=== PATIENT | male | born 1975 | race Caucasian/White ===

== ENCOUNTER → 2019-01-03 13:36 | Outpatient (CLI) | payer OTHER ==
[~2019-01-03 13:36] MED LIST: IBUPROFEN800 MG PO; PERCOCET 10-321 EAC1 PO; ZOFRAN ODT4 MG/UDTAB PO
--- NOTE | 2019-01-03 14:32 | NUR ---
TIME OUT WAS PERFORMED ON LT SHLD ARTHROGRAM W MATTEO SANDOVAL RT AND DR TAN
[2019-01-28 08:43] VITALS: BMI 34.3
== END | disposition home or self-care (01) ==
LOC: D.RAD 10:00 → D.MRI 11:00 → D.RAD 13:36
PROVIDERS: ATTEND Orthopaedic Surgery
DX: S49.92XA Unspecified injury of left shoulder and upper arm, initial encounter (principal)

== ENCOUNTER 2019-01-28 08:10 | Day surgery (SDC) | payer OTHER ==
[~2019-01-28] VITALS: Ht 185.4 cm; Wt 117.9 kg
[2019-01-28] MEDS ORDERED: IBUPROFEN800 MG PO (08:36)
[2019-01-28 08:43] VITALS: BP 128/73; Ht 185.4 cm; Wt 117.9 kg
[2019-01-28] MEDS ORDERED: PERCOCET 10-321 EAC1 PO (14:19)
[2019-01-28] MEDS ORDERED: ZOFRAN ODT4 MG/UDTAB PO (14:20)
--- NOTE | 2019-01-28 15:55 | NUR ---
1545 FL DIET SERVED. UP TO BR VOIDS QS.
--- NOTE | 2019-01-30 09:08 | OP ---
PATIENT NAME: NOEL HERNANDEZ MEDICAL RECORD: [id number] :77 LOCATION:[facility] ADMISSION DATE: SURGEON: HOANG PEREZ MD DATE OF OPERATION: 01/28/2019 PREOPERATIVE DIAGNOSES: SLAP lesion of the left shoulder with impingement syndrome and acromioclavicular arthritis. POSTOPERATIVE DIAGNOSES: SLAP lesion of the left shoulder with impingement syndrome and acromioclavicular arthritis. PROCEDURES: 1. Arthroscopic SLAP repair of the left shoulder. 2. Arthroscopic distal clavicle excision done through separate incision -- 1 cm. 3. Arthroscopic subacromial decompression, acromioplasty, and bursectomy. SURGEON: Hoang Perez MD APPLICATION CONSULTANT: Lane Hay APN INTRAOPERATIVE COMPLICATIONS: None. SUMMARY OF PATHOLOGIC FINDINGS: Consistent with the preoperative diagnosis, the patient had a SLAP lesion from approximately the 9:30 to about 2 o'clock. This was fixable with three 2.9 PushLocks using labral tape. The patient also had excoriation of the acromion ligament as well as AC joint arthropathy. OPERATIVE SUMMARY IN DETAIL: After obtaining the appropriate preoperative orthopedic surgery consent as well as anesthetic consultation, evaluation and clearance, the patient was brought to the operating room and placed on the operating table in supine position. After general laryngeal mask airway was administered, the patient was placed in a right lateral decubitus position. All pressure points were well padded to include down leg peroneal pad as well as axillary roll. The patient was held firmly to the operating table using the vacuum pack suction system. Left upper extremity and shoulder were then prepped and draped in routine sterile fashion. The arm was held in the [employer] traction boom in 30 degrees of forward flexion, 30 degrees of abduction, 10 pounds of traction laterally. Arthroscopy was established in the glenohumeral joint from the posterior portal, anterior portal was established from the anterior safe interval under direct arthroscopic visualization. At this point, the SLAP lesion was noted. Arthroscopic resector was then utilized to debride the torn portions of labrum as well as prepare the anterior and superior aspect of the glenoid for reapproximation. Accessory tertiary portal of Becky was completed. The drill holes were created at the 1 o'clock, 11 o'clock, and 10 o'clock position. A labral tape was passed at each of these positions and the labrum was then anchored using the 2.9 SwiveLock from [employer]. Excellent reapproximation of the labrum was achieved from front to back. Having completed this, attention was turned to the subacromial space. It is of note that the patient had mild biceps tendinitis, but I thought not to the point of needing tenotomy or tenodesis. After arthroscopy was established from the subacromial joint, the anterior aspect of the acromion was denuded of all soft tissue elements. Coracoacromial ligament was released. A 5-0 barrel bur was used to perform acromioplasty at the level of acromioclavicular joint. Then through a separate arthroscopic anterior portal under direct arthroscopic visualization, OPERATIVE REPORT [id number] NOEL HERNANDEZ distal clavicle was excised for 1 cm. Having completed this, the residual of the subacromial bursa was removed anteriorly, laterally, posteriorly and superiorly. Having completed this, arthroscopy portals were closed in routine interrupted fashion using 4-0 Prolene. Sterile dressings were applied. The patient was awakened and taken to the recovery room in stable condition. All final needle and sponge counts were correct. Please note that Lane Hay's assistantship in the part was holding the scopes as well as helping deploy instruments and anchors. TRANSINT:[id number] Voice Confirmation ID: [id number] DOCUMENT ID: [id number] ANA PURI, HOANG MAYES at 0908 CC: [id number] DICTATION DATE: 01/28/19 1424 CARDIOTHORACIC SURGEON: 01/29/19 0112 [facility] 01/28/19 [facility] [address] [place] [address]
== END 2019-01-28 16:45 | disposition home or self-care (01) ==
LOC: D.OPS 08:10 → D.PAN 11:30 → D.OPS 11:30
PROVIDERS: ATTEND Orthopaedic Surgery
DX: S43.432A Superior glenoid labrum lesion of left shoulder, initial encounter (principal); X58.XXXA Exposure to other specified factors, initial encounter; M75.42 Impingement syndrome of left shoulder; M19.012 Primary osteoarthritis, left shoulder